=== PATIENT | female | born 1950 | race Caucasian/White ===

== ENCOUNTER → 2017-05-11 | Outpatient (CLI) | payer MEDICARE ==
--- NOTE | 2017-05-11 12:49 | MM ---
Reason for exam: additional evaluation requested from prior study. Last mammogram was performed 1 year ago. History: Patient is postmenopausal. Benign core biopsy of the left breast, 2012. Benign excisional biopsy of the left breast, 2000. Took estrogen for 5 years. Physical Findings: Nurse did not find any significant physical abnormalities on exam. MG 3D Diag Mammo W/Cad NAYANA Bilateral CC and MLO view(s) were taken. ML and spot compression CC view(s) were taken of the left breast. Prior study comparison: May 08, 2016, bilateral MG 3d screening mammo w/cad. May 01, 2015, bilateral MG screening mammo w CAD. April 24, 2014, bilateral MG diagnostic mammo w CAD NAYANA. There are scattered fibroglandular densities. Previous mammotome biopsy within the left breast. Lateral nodularity in the left breast middle depth stable from 2016. As it is not clearly seen prior to 2016, ultrasound is recommended at 3 o'clock. These results were verbally communicated with the patient and result sheet given to the patient on 05/11/17. ASSESSMENT: Incomplete: need additional imaging evaluation, BI-RAD 0 RECOMMENDATION: Ultrasound of the left breast. (3 o'clock).
--- NOTE | 2017-05-11 13:03 | USB ---
Reason for exam: additional evaluation requested from abnormal screening. History: Patient is postmenopausal. Benign core biopsy of the left breast, 2012. Benign excisional biopsy of the left breast, 2000. Took estrogen for 5 years. US Breast Workup Limited LT Left breast ultrasound demonstrates a 0.3 x 0.3 x 0.2cm cystic lesion at 3 o' clock unsure if this corresponds to the mammographic finding. As the finding is stable for 1 year, additional 1 year diagnostic follow up is recommended. These results were verbally communicated with the patient and result sheet given to the patient on 05/11/17. ASSESSMENT: Probably benign, BI-RAD 3 RECOMMENDATION: Follow-up diagnostic mammogram of both breasts in 1 year. (Annual exam for the right breast and a total of 2 years followup for the left breast) ILDA
== END | disposition home or self-care (01) ==
LOC: RADMAMWWP 09:58
PROVIDERS: ATTEND Family Medicine
DX: R92.8 Other abnormal and inconclusive findings on diagnostic imaging of breast (principal); R92.2 Inconclusive mammogram
CPT/HCPCS: 76642; G0204; G0279

== ENCOUNTER → 2022-04-28 | Outpatient (CLI) | payer MEDICARE ==
--- NOTE | 2022-04-28 09:22 | CT ---
EXAMINATION TYPE: CT sinus wo con DATE OF EXAM: 04/28/2022 COMPARISON: None available HISTORY: Sinus pressure and headaches x6 months. CT DLP: 624.2 mGycm. Automated Exposure Control for Dose Reduction was Utilized. TECHNIQUE: CT scan of the sinuses is performed without contrast, axial images are obtained, coronal r eformatted images are also reviewed. FINDINGS: Deviated bony nasal septum convex to the right side with a bony spur. Remodeling of the adjacent port ion of the right middle and right inferior turbinates. Minimal mucosal thickening of the inferior asp ects of the nasal fossa bilaterally. Pneumatization of the left vertical lamella. Unremarkable left i nferior turbinate. Patent infundibulum and ostiomeatal complex bilaterally. Minimal mucosal thickening of the right maxi llary sinus. Otherwise unremarkable maxillary sinuses, sphenoid sinus, ethmoid air cells and frontal sinus. Patent sphenoethmoidal recesses. Clear visualized mastoid air cells. Grossly unremarkable visu alized portion of the brain and orbits. IMPRESSION: Minimal mucosal thickening of the right maxillary sinus, otherwise grossly unremarkable paranasal sin uses. Deviated bony nasal septum and other findings as described above.
== END | disposition home or self-care (01) ==
LOC: RADCTMAIN 08:27
PROVIDERS: ATTEND Otolaryngology
DX: J34.89 Other specified disorders of nose and nasal sinuses (principal); J34.2 Deviated nasal septum
CPT/HCPCS: 70486

== ENCOUNTER → 2022-05-14 | Outpatient (CLI) | payer MEDICARE | END | disposition home or self-care (01) | LOC: LABWHC1 15:15 | PROVIDERS: ATTEND Otolaryngology | DX: J30.89 Other allergic rhinitis (principal) | CPT/HCPCS: 36415 ==